=== PATIENT | female | born 1990 | race Caucasian/White ===

== ENCOUNTER 2018-04-11 16:28 | Emergency (ER) | payer BC ==
[2018-04-11 17:55] LABS: Absolute Lymphocytes (CBC) 2.3 K/uL (0.7-4.9); Absolute Monocytes 0.5 K/uL (0.1-1.3); Absolute Neutrophil 2.8 K/uL (1.8-8.0); Basophils % 0.5 % (0-1.3); Hematocrit 44.2 % (36.0-45.0); Lymphocytes % 39.8 % (15.3-44.8); MPV 8.5 fL (7.6-11.3); Monocytes % 9.1 % (3.3-12.3); RBC Red Blood Cell Count 4.57 M/uL (3.86-4.86)
[2018-04-11 18:09] LABS: BUN Blood Urea Nitrogen 10 mg/dL (7-18); Bicarbonate 28 mmol/L (21-32); Glucose Level 99 mg/dL (74-106); Potassium 3.6 mmol/L (3.5-5.1); Sodium Level 140 mmol/L (136-145)
--- NOTE | 2018-04-11 18:29 | RAD REPORT ---
EXAM DESCRIPTION: CTAbdomen Pelvis W Contrast - 04/11/2018 6:19 pm CLINICAL HISTORY: Abdominal pain. iv only;Abd pain;Trauma COMPARISON: No comparisons TECHNIQUE: Biphasic CT imaging of the abdomen and pelvis was performed with 100 ml non-ionic IV cont rast. All CT scans are performed using dose optimization technique as appropriate and may include automated exposure control or mA/KV adjustment according to patient size. FINDINGS: The lung bases are clear. The liver, spleen, pancreas, adrenal glands and kidneys are within normal limits. No bowel obstruction, free air, free fluid or abscess. The appendix is normal. No evidence of signi ficant lymphadenopathy. No suspicious bony findings. IMPRESSION: No acute intra-abdominal or pelvic finding.
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
== END 2018-04-11 19:21 | disposition home or self-care (01) ==
LOC: ER 16:28
DX: G89.11 Acute pain due to trauma (principal); V49.40XA Driver injured in collision with unspecified motor vehicles in traffic accident, initial encounter
CPT/HCPCS: 36415; 74177; 80048; 81025; 85025; 99284; Q9967

== ENCOUNTER 2020-04-30 18:33 | Emergency (ER) | payer BC ==
[2020-04-30 20:09] LABS: Urine Blood NEGATIVE (NEG); Urine Glucose NEGATIVE (NEG); Urine Protein NEGATIVE (NEG); Urine pH 8.5 (5.0-7.0)
[2020-04-30 22:04] LABS: Urine Amorphous Sediment 4+ /HPF (NONE SEEN); Urine Bacteria <20 /HPF (<20); Urine RBC <5 /HPF (NONE SEEN); Urine Urothelial Cells <5 /HPF (NONE SEEN)
[2020-04-30] MEDS ORDERED: KETOROLAC 30 MG/ML INJ ONE (22:31)
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
--- NOTE | 2020-05-01 00:19 | ER ---
Nurse's Notes [facility] Name: Flaca Freeman Age: 29 yrs Sex: Female : 1990 Arrival Date: 04/30/2020 Time: 18:42 Bed 24 Private MD: Diagnosis: Lower abdominal pain, unspecified;Diarrhea, unspecified Presentation: 04/30 18:59 Chief complaint: Patient states: Left lower back pain started noon today. Reports HX of ca1 kidney stone. Coronavirus screen: Client denies travel out of the [place] in the last 14 days. At this time, the client does not indicate any symptoms associated with coronavirus-19. Ebola Screen: Patient negative for fever greater than or equal to 101.5 degrees Fahrenheit, and additional compatible Ebola Virus Disease symptoms Patient denies exposure to infectious person. Patient denies travel to an Ebola-affected area in the 21 days before illness onset. No symptoms or risks identified at this time. Initial Sepsis Screen: Does the patient meet any 2 criteria? No. Patient's initial sepsis screen is negative. Does the patient have a suspected source of infection? No. Patient's initial sepsis screen is negative. Risk Assessment: Do you want to hurt yourself or someone else? Patient reports no desire to harm self or others. Onset of symptoms was April 30, 2020. 18:59 Method Of Arrival: Ambulatory ca1 18:59 Acuity: LYLA 3 ca1 NURSE WOUND CARE: 19:01 LMP 04/28/2020 ca1 Historical: - Allergies: 19:01 No Known Allergies; ca1 - Home Meds: 19:01 None [Active]; ca1 - PMHx: 19:01 Kidney stones; ca1 - PSHx: 19:01 None; ca1 - Immunization history:: Flu vaccine is not up to date. - Social history:: Smoking status: Patient denies any tobacco usage or history of. Screenin:17 Abuse screen: Denies threats or abuse. Nutritional screening: No deficits noted. fu Tuberculosis screening: No symptoms or risk factors identified. Fall Risk None identified. Assessment: 20:30 General: Appears uncomfortable, Behavior is calm, cooperative, appropriate for age, fu Denies fever, feeling ill, fatigue, chills. Pain: Complains of pain in left lower back Pain does not radiate. Pain currently is 6 out of 10 on a pain scale. Quality of pain is described as crampy, Pain began at noon today. Neuro: Level of Consciousness is awake, alert, obeys commands, Oriented to person, place, time, Gaming Associate are equal bilaterally Moves all extremities. Gait is steady, Speech is normal, Facial symmetry appears normal. Cardiovascular: Denies chest pain, nausea, vomiting. Respiratory: Respiratory effort is even, unlabored, Respiratory pattern is regular. : Denies burning with urination. EENT: Denies nasal congestion. 22:30 Reassessment: Report increasing pain to left lower back, GRAIN MANAGER notified. fu 23:00 Reassessment: Patient and/or family updated on plan of care and expected duration. Pain fu level reassessed. Patient is alert, oriented x 3, equal unlabored respirations, skin warm/dry/pink. 23:44 Reassessment: Patient and/or family updated on plan of care and expected duration. Pain fu level reassessed. Patient is alert, oriented x 3, equal unlabored respirations, skin warm/dry/pink. Patient states feeling better. Patient states symptoms have improved. Vital Signs: 18:59 BP 131 / 92; Pulse 93; Resp 16 S; Temp 97.6(TE); Pulse Ox 100% on R/A; Weight 51.71 kg ca1 (R); Height 5 ft. 3 in. (160.02 cm) (R); Pain 8/10; 21:15 BP 119 / 87; Pulse 92; Resp 16; Temp 98.4; Pulse Ox 100% on R/A; Pain 4/10; fu 18:59 Body Mass Index 20.19 (51.71 kg, 160.02 cm) ca1 ED Course: 18:42 Patient arrived in ED. am2 19:00 Triage completed. ca1 19:01 Arm band placed on right wrist. ca1 20:20 Natalia Soriano, GOVERNMENT MINISTER-C is PHCP. snw 20:21 Shreyas Weeks MD is Attending Physician. snw 20:22 Natalia Soriano, GOVERNMENT MINISTER-C is PHCP. snw 20:23 Natalia Soriano, GOVERNMENT MINISTER-C is PHCP. snw 20:35 Kenneth Miranda RN is Primary Nurse. fu 21:23 Bed in low position. Side rails up X 1. Pulse ox on. NIBP on. fu 21:34 No provider procedures requiring assistance completed. fu 23:12 US Rp Exam Complete In Process Unspecified. EDMS 23:12 Ultrasound completed. Patient tolerated well. Notified ED Physician natalia. sg3 05/01 00:10 Patient did not have IV access during this emergency room visit. fu Administered Medications: 04/30 22:23 Drug: TORadol 60 mg Route: IM; Site: right ventrogluteal; fu 23:43 Follow up: Response: Pain is decreased fu Outcome: 05/01 00:18 Discharge ordered by MD. butler 01:10 Discharged to home ambulatory. fu 01:10 Condition: good 01:10 Discharge instructions given to patient, Instructed on discharge instructions, follow up and referral plans. Demonstrated understanding of instructions, follow-up care, Prescriptions given X 2. 01:40 Patient left the ED. fu Signatures: Dispatcher [employer] EDMS Natalia Soriano, ERNAC GOVERNMENT MINISTER-Kanika Munoz am2 Kenneth Miranda, RN RN Audrey Molina sg3 Savana Gamino, RN RN ca1 Corrections: (The following items were deleted from the chart) 04/30 21:22 20:30 EENT: fu fu 22:56 22:11 CORONAVIRUS+MR.LAB.HUGO drawn and sent. EDMS
[2020-05-01 01:45] VITALS: O2SAT 100
[2020-05-01 01:47] VITALS: BP 119/87; TEMP 98.4
--- NOTE | 2020-05-01 09:35 | RAD REPORT ---
EXAM DESCRIPTION: US - Renal Ultrasound-Complete - 04/30/2020 11:12 pm CLINICAL HISTORY: Left flank COMPARISON: None FINDINGS: The right kidney measures 11 cm with a normal echotexture. The left kidney measures 10 cm with a normal echotexture. Hydronephrosis is not seen. No gross abnormality of bladder IMPRESSION: Unremarkable renal ultrasound.
== END 2020-05-01 01:40 | disposition home or self-care (01) ==
LOC: ER 18:33
DX: R19.7 Diarrhea, unspecified (principal); Z20.822 Contact with and (suspected) exposure to COVID-19
CPT/HCPCS: 81025; 76770; 96372; 99284; U0003; 81003; 81015

== ENCOUNTER 2021-03-25 01:06 | Emergency (ER) | payer BC ==
[2021-03-25 02:36] LABS: Absolute Lymphocytes (CBC) 1.2 K/uL (0.7-4.9); Hematocrit 41.6 % (36.0-45.0); Lymphocytes % 10.5 % (15.3-44.8); MPV 8.1 fL (7.6-11.3); RBC Red Blood Cell Count 4.32 M/uL (3.86-4.86)
[2021-03-25] MEDS ORDERED: FAMOTIDINE 20 MG/2 ML VIAL IV ONE (02:36)
[2021-03-25] MEDS ORDERED: ONDANSETRON 4 MG/2 ML VIAL ONE (02:36)
[2021-03-25] MEDS ORDERED: MORPHINE 4 MG/ML SYR ONE (02:36)
[2021-03-25 02:53] LABS: ALT/SGPT 54 U/L (12-78); AST/SGOT 67 U/L (15-37); Albumin 3.7 g/dL (3.4-5.0); Alkaline Phosphatase 72 U/L (45-117); BUN Blood Urea Nitrogen 11 mg/dL (7-18); Bicarbonate 25 mmol/L (21-32); Bilirubin Direct 0.3 mg/dL (0-0.2); Bilirubin Total 0.8 mg/dL (0.2-1.0); Glucose Level 109 mg/dL (74-106); Lipase 95 U/L (73-393); Potassium 3.4 mmol/L (3.5-5.1); Sodium Level 138 mmol/L (136-145)
[2021-03-25] MEDS ORDERED: NA CHLORIDE 0.9% 1,000 ML ONE ×2 (02:59→03:20)
[2021-03-25 03:40] LABS: Urine Blood 2+ (Negative); Urine Glucose Negative (Negative); Urine Protein Negative (Negative)
--- NOTE | 2021-03-25 05:55 | ER ---
Nurse's Notes [facility] Name: Flaca Freeman Age: 30 yrs Sex: Female : 1990 Arrival Date: 03/25/2021 Time: 01:10 Bed 15 Private MD: Diagnosis: Upper abdominal pain, unspecified;Chest pain, unspecified;Back Pain Presentation: 03/25 01:53 Chief complaint: Patient states: About 2 PM I started having back pain, around 5 we ate vc1 and the pain got worse. I took Tums, beano and famotidine thinking it was heart burn but that didn't help so I took 800 mg Ibuprofen and Tylenol. Around 11:30 we ate again and it came back much worse. It started hurting in my chest upper abdomen and started radiating to my shoulders. Coronavirus screen: At this time, the client does not indicate any symptoms associated with coronavirus-19. Ebola Screen: No symptoms or risks identified at this time. Initial Sepsis Screen: Does the patient meet any 2 criteria? No. Patient's initial sepsis screen is negative. Does the patient have a suspected source of infection? No. Patient's initial sepsis screen is negative. Risk Assessment: Do you want to hurt yourself or someone else? Patient reports no desire to harm self or others. Onset of symptoms was March 24, 2021 at 14:00. 01:53 Method Of Arrival: Ambulatory vc1 01:53 Acuity: LYLA 3 vc1 Triage Assessment: 01:58 General: Appears in no apparent distress. comfortable, Behavior is calm, cooperative, vc1 appropriate for age. Pain: Complains of pain in left subscapular area, right subscapular area, mid back area, left mid back, right mid back, diaphragm, xiphoid area and mid-sternal area Pain radiates to posterior aspect of right shoulder and posterior aspect of left shoulder. Pain: Pain currently is 3 out of 10 on a pain scale. at worst was 10 out of 10 on a pain scale. GI: Reports upper abdominal pain, epigastric pain, Pain is 3 out of 10 on a pain scale. 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 - Social history:: Smoking status: Patient denies any tobacco usage or history of. Screenin:00 Abuse screen: Denies threats or abuse. Nutritional screening: No deficits noted. vc1 Tuberculosis screening: No symptoms or risk factors identified. Fall Risk None identified. Assessment: 02:00 General: Appears uncomfortable, Behavior is cooperative. Pain: Complains of pain in mk chest, epigastric region, back Pain currently is 7 out of 10 on a pain scale. Quality of pain is described as sharp, Pain began suddenly, Is continuous. Neuro: Level of Consciousness is awake, alert, obeys commands, Oriented to person, place, time, situation, Robotics Testing Technician are equal bilaterally Moves all extremities. Speech is normal, Facial symmetry appears normal. Cardiovascular: Heart tones S1 S2 present Capillary refill < 3 seconds in bilateral fingers toes Clubbing of nail beds is absent JVD is absent Patient's skin is warm and dry. Rhythm is sinus rhythm. Respiratory: Airway is patent Trachea midline Respiratory effort is even, unlabored, Respiratory pattern is regular, symmetrical, Breath sounds are clear. GI: Bowel sounds present X 4 quads. Abd is soft Abdomen is tender to palpation in epigastric area Reports upper abdominal pain. : No signs and/or symptoms were reported regarding the genitourinary system. Derm: Skin is intact, is healthy with good turgor, Skin is dry, Skin temperature is warm. Musculoskeletal: Circulation, motion, and sensation intact. Capillary refill < 3 seconds, in bilateral fingers. toes. Range of motion: intact in all extremities. 03:00 Reassessment: No changes from previously documented assessment. Patient and/or family mk updated on plan of care and expected duration. Pain level reassessed. Patient is alert, oriented x 3, equal unlabored respirations, skin warm/dry/pink. 04:00 Pain: Complains of pain in abdomen Pain currently is 3 out of 10 on a pain scale. mk Quality of pain is described as sharp, Pain began suddenly, Is continuous. 04:56 Reassessment: No changes from previously documented assessment. Patient and/or family mk updated on plan of care and expected duration. Pain level reassessed. Patient is alert, oriented x 3, equal unlabored respirations, skin warm/dry/pink. Patient states feeling better. 06:12 Reassessment: No changes from previously documented assessment. Patient and/or family mk updated on plan of care and expected duration. Pain level reassessed. Patient is alert, oriented x 3, equal unlabored respirations, skin warm/dry/pink. Vital Signs: 01:53 BP 141 / 99; Pulse 80; Resp 16; Temp 97.7; Pulse Ox 100% ; Weight 54.43 kg; Height 5 vc1 ft. 3 in. (160.02 cm); Pain 3/10; 03:00 BP 127 / 90; Pulse 56; Resp 18; Pulse Ox 98% on R/A; mk 04:00 BP 133 / 93; Pulse 65; Resp 18; Pulse Ox 100% on R/A; mk 04:56 BP 120 / 84; Pulse 64; Resp 18; Pulse Ox 100% on R/A; mk 06:13 BP 132 / 97; Pulse 81; Resp 16; Pulse Ox 99% on R/A; mk 01:53 Body Mass Index 21.26 (54.43 kg, 160.02 cm) vc1 [place] Coma Score: 03:00 Eye Response: spontaneous(4). Verbal Response: oriented(5). Motor Response: obeys commands(6). Total: 15. 04:00 Eye Response: spontaneous(4). Verbal Response: oriented(5). Motor Response: obeys commands(6). Total: 15. 04:56 Eye Response: spontaneous(4). Verbal Response: oriented(5). Motor Response: obeys commands(6). Total: 15. 06:13 Eye Response: spontaneous(4). Verbal Response: oriented(5). Motor Response: obeys commands(6). Total: 15. ED Course: 01:10 Patient arrived in ED. wm 01:42 Mariposa Aceves, SON is Primary Nurse. mk 01:46 Shreyas Weeks MD is Attending Physician. 7 01:57 Triage completed. vc1 01:59 Arm band placed on right wrist. vc1 02:00 Patient has correct armband on for positive identification. Placed in gown. Bed in low vc1 position. Call light in reach. Side rails up X2. Pulse ox on. NIBP on. Warm blanket given. 02:28 Basic Metabolic Panel Sent. mk 02:28 CBC with Diff Sent. mk 02:28 Hepatic Function Sent. mk 02:28 Lipase Sent. mk 02:28 Inserted saline lock: 18 gauge in left antecubital area, using aseptic technique. mk 02:53 Troponin High Sensitivity Sent. mk 03:41 Urine --Ancillary (enter results) Sent. mk 04:27 CT Chest For PE Angio In Process Unspecified. EDMS 04:27 CT Abd/Pelvis - IV Contrast Only In Process Unspecified. EDMS 06:13 IV discontinued, intact, bleeding controlled, No redness/swelling at site. Pressure dressing applied. 06:14 No provider procedures requiring assistance completed. mk Administered Medications: 02:53 Drug: morphine 4 mg Route: IVP; Site: right antecubital; 02:53 Drug: Zofran (Ondansetron) 4 mg Route: IVP; Site: left antecubital; mk 02:53 Drug: Pepcid (famotidine) 20 mg Route: IVP; Site: left antecubital; mk 03:20 Drug: NS 0.9% 1000 ml Route: IV; Rate: 1000 ml; Site: left antecubital; Outcome: 05:55 Discharge ordered by MD. cervantes 06:14 Discharged to home 06:14 Condition: stable 06:14 Discharge instructions given to patient, Instructed on discharge instructions, follow up and referral plans. Prescriptions given X 3. 06:16 Patient left the ED. Signatures: Dispatcher [employer] Shreyas Rangel MD MD Tayla Mendoza Madeline RN Bettie Jaime RN RN vc1 Corrections: (The following items were deleted from the chart) 04:17 04:16 General: Appears in no apparent distress. [facility] 04:17 04:16 Pain: Complains of pain in check, epigastric region, back Pain [facility]
--- NOTE | 2021-03-25 05:55 | EDPHYS ---
Physician Documentation [facility] Name: Flaca Freeman Age: 30 yrs Sex: Female : 1990 Arrival Date: 03/25/2021 Time: 01:10 Bed 15 Private MD: ED Physician Shreyas Weeks HPI: 03/25 02:18 This 30 yrs old Female presents to ER via Ambulatory with complaints of Abdominal Pain, mh7 Chest Pain, Back Pain. 02:18 The patient presents with abdominal pain in the upper abdomen. Onset: The mh7 symptoms/episode began/occurred yesterday, at 14:00. The symptoms radiate to back. Associated signs and symptoms: Pertinent positives: nausea, Pertinent negatives: anorexia, blood in stools, chest pain, constipation, diarrhea, dysuria, fever, headache, hematuria, palpitations, shortness of breath, vaginal discharge, vomiting, vomiting blood. The symptoms are described as intermittent, vague, waxing/waning. Modifying factors: The symptoms are alleviated by nothing, the symptoms are aggravated by food. Severity of pain: At its worst the pain was moderate yesterday, in the emergency department the pain is unchanged. 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 - Social history:: Smoking status: Patient denies any tobacco usage or history of. ROS: 02:18 Constitutional: Negative for fever, chills, and weight loss, Eyes: Negative for injury, mh7 pain, redness, and discharge, ENT: Negative for injury, pain, and discharge, Neck: Negative for injury, pain, and swelling, Cardiovascular: Negative for chest pain, palpitations, and edema, Respiratory: Negative for shortness of breath, cough, wheezing, and pleuritic chest pain, : Negative for injury, bleeding, discharge, and swelling, MS/Extremity: Negative for injury and deformity, Skin: Negative for injury, rash, and discoloration, Neuro: Negative for headache, weakness, numbness, tingling, and seizure, Psych: Negative for depression, anxiety, suicide ideation, homicidal ideation, and hallucinations, Allergy/Immunology: Negative for hives, rash, and allergies, Endocrine: Negative for neck swelling, polydipsia, polyuria, polyphagia, and marked weight changes, Hematologic/Lymphatic: Negative for swollen nodes, abnormal bleeding, and unusual bruising. Exam: 02:18 Head/Face: Normocephalic, atraumatic. Eyes: Pupils equal round and reactive to light, mh7 extra-ocular motions intact. Lids and lashes normal. Conjunctiva and sclera are non-icteric and not injected. Cornea within normal limits. Periorbital areas with no swelling, redness, or edema. Neck: Trachea midline, no thyromegaly or masses palpated, and no cervical lymphadenopathy. Supple, full range of motion without nuchal rigidity, or vertebral point tenderness. No Meningismus. Chest/axilla: Normal chest wall appearance and motion. Nontender with no deformity. No lesions are appreciated. Cardiovascular: Regular rate and rhythm with a normal S1 and S2. No gallops, murmurs, or rubs. Normal PMI, no JVD. No pulse deficits. Respiratory: Lungs have equal breath sounds bilaterally, clear to auscultation and percussion. No rales, rhonchi or wheezes noted. No increased work of breathing, no retractions or nasal flaring. Skin: Warm, dry with normal turgor. Normal color with no rashes, no lesions, and no evidence of cellulitis. MS/ Extremity: Pulses equal, no cyanosis. Neurovascular intact. Full, normal range of motion. Neuro: Awake and alert, GCS 15, oriented to person, place, time, and situation. Cranial nerves II-XII grossly intact. Motor strength 5/5 in all extremities. Sensory grossly intact. Cerebellar exam normal. Normal gait. Psych: Awake, alert, with orientation to person, place and time. Behavior, mood, and affect are within normal limits. 02:18 Constitutional: The patient appears in no acute distress, alert, awake, uncomfortable. 02:18 Abdomen/GI: Inspection: abdomen appears normal, Bowel sounds: normal, in all quadrants, mh7 Palpation: moderate abdominal tenderness, in the epigastric area, right upper quadrant and left upper quadrant, mass, is not appreciated, rebound tenderness, is not appreciated, voluntary guarding, is not appreciated, involuntary guarding, is not appreciated, no appreciated organomegaly, Rectal exam: the exam is deferred, because of patient request, Indicators: McBurney's point is not tender, Garcia's sign is negative, Rovsing's sign is negative, Obturator sign is negative, Psoas sign is negative, Liver: no appreciated palpable abnormalities, Hernia: not appreciated. 02:18 Back: normal spinal alignment noted, CVA tenderness, is absent, muscle spasm, is not present. Vital Signs: 01:53 BP 141 / 99; Pulse 80; Resp 16; Temp 97.7; Pulse Ox 100% ; Weight 54.43 kg; Height 5 vc1 ft. 3 in. (160.02 cm); Pain 3/10; 03:00 BP 127 / 90; Pulse 56; Resp 18; Pulse Ox 98% on R/A; mk 04:00 BP 133 / 93; Pulse 65; Resp 18; Pulse Ox 100% on R/A; mk 04:56 BP 120 / 84; Pulse 64; Resp 18; Pulse Ox 100% on R/A; mk 06:13 BP 132 / 97; Pulse 81; Resp 16; Pulse Ox 99% on R/A; mk 01:53 Body Mass Index 21.26 (54.43 kg, 160.02 cm) vc1 Judith Coma Score: 03:00 Eye Response: spontaneous(4). Verbal Response: oriented(5). Motor Response: obeys mk commands(6). Total: 15. 04:00 Eye Response: spontaneous(4). Verbal Response: oriented(5). Motor Response: obeys mk commands(6). Total: 15. 04:56 Eye Response: spontaneous(4). Verbal Response: oriented(5). Motor Response: obeys mk commands(6). Total: 15. 06:13 Eye Response: spontaneous(4). Verbal Response: oriented(5). Motor Response: obeys mk commands(6). Total: 15. MDM: 05:52 Differential diagnosis: bowel obstruction, cholecystitis, Cholelithiasis, mh7 diverticulitis, Endometriosis, gastritis, gastroesophageal reflux disease, non-specific abd pain, pancreatitis, Peptic Ulcer Disease, Pyelonephritis, Ureterolithiasis, urinary tract infection. Data reviewed: vital signs, nurses notes, lab test result(s), CBC, electrolytes, urinalysis, UPT: negative EKG, radiologic studies, CT scan. Data interpreted: Pulse oximetry: on room air is 100 %. Interpretation: normal. Counseling: I had a detailed discussion with the patient and/or guardian regarding: the historical points, exam findings, and any diagnostic results supporting the discharge/admit diagnosis, lab results, radiology results, the need for outpatient follow up, to return to the emergency department if symptoms worsen or persist or if there are any questions or concerns that arise at home. Response to treatment: the patient's symptoms have resolved after treatment, the patient's blood pressure is in an acceptable range, mental status has returned to baseline, the patient no longer shows bradycardia, the patient is not short of breath, the patient is not tachycardic, the patient's pain is gone, the patient's temperature has normalized. 05:55 Patient medically screened. [facility] 03/25 02:12 Order name: Basic Metabolic Panel; Complete Time: 03:47 [facility] 03/25 02:12 Order name: CBC with Diff; Complete Time: 03:47 [facility] 03/25 02:12 Order name: Hepatic Function; Complete Time: 03:47 [facility] 03/25 02:12 Order name: Lipase; Complete Time: 03:47 [facility] 03/25 02:39 Order name: Troponin High Sensitivity; Complete Time: 03:47 [facility] 03/25 03:39 Order name: Urine Dipstick-Ancillary; Complete Time: 03:47 EDMS 03/25 02:18 Order name: EKG; Complete Time: 02:18 [facility] 03/25 03:40 Order name: Urine --Ancillary (enter results); Complete Time: 04:01 cs9 03/25 03:48 Order name: CT Chest For PE Angio [facility] 03/25 03:48 Order name: CT Abd/Pelvis - IV Contrast Only [facility] 03/25 02:12 Order name: IV Saline Lock; Complete Time: 02:28 [facility] 03/25 02:12 Order name: Labs collected and sent; Complete Time: 02:28 [facility] 03/25 02:12 Order name: Urine Dipstick-Ancillary (obtain specimen); Complete Time: 02:53 [facility] 03/25 02:12 Order name: Urine Test (obtain specimen); Complete Time: 02:53 [facility] 03/25 02:18 Order name: EKG - Nurse/Tech; Complete Time: :53 7 Administered Medications: 02:53 Drug: morphine 4 mg Route: IVP; Site: right antecubital; 02:53 Drug: Zofran (Ondansetron) 4 mg Route: IVP; Site: left antecubital; 02:53 Drug: Pepcid (famotidine) 20 mg Route: IVP; Site: left antecubital; 03:20 Drug: NS 0.9% 1000 ml Route: IV; Rate: 1000 ml; Site: left antecubital; Disposition Summary: 03/25/21 05:55 Discharge Ordered Location: Home [facility] Problem: new [facility] Symptoms: have improved [facility] Condition: Stable [facility] Diagnosis - Upper abdominal pain, unspecified 7 - Chest pain, unspecified [facility] - Back Pain [facility] Followup: [facility] - With: Private Physician - When: 1 - 2 days - Reason: Worsening of condition, Recheck today's complaints, Continuance of care, Re-evaluation by your physician Discharge Instructions: - Discharge Summary Sheet [facility] - Abdominal Pain, Adult, [id number] [facility] - Nonspecific Chest Pain, Adult, [id number] [facility] Forms: - Medication Reconciliation Form [facility] - Thank You Letter 7 - Antibiotic Education [facility] - Prescription Opioid Use [facility] - Work release form cs9 Prescriptions: - ondansetron 4 mg Oral tablet,disintegrating - place 1 tablet by TRANSLINGUAL route every 8 hours As needed; 10 tablet; [facility] Refills: 0, Product Selection Permitted - Pepcid 20 mg Oral Tablet - take 1 tablet by ORAL route every 12 hours for 5 days; 10 tablet; Refills: 0, [facility] Product Selection Permitted - dicyclomine 20 mg Oral Tablet - take 1 tablet by ORAL route 4 times per day As needed; 20 tablet; Refills: 0, [facility] Product Selection Permitted Signatures: Dispatcher [employer] Shreyas Rangel MD MD 7 Mariposa Aceves, RN RN Bettie Alvarez RN RN vc1
[2021-03-25 06:22] VITALS: TEMP 97.7
[2021-03-25 06:27] VITALS: BP 132/97; O2SAT 99
--- NOTE | 2021-03-25 17:38 | RAD REPORT ---
EXAM DESCRIPTION: CT - Chest For Pe Angio - 03/25/2021 7:17 am CLINICAL HISTORY: The patient is 30 years old and is Female; CHEST PAIN TECHNIQUE: Axial computed tomographic angiography images of the chest with intravenous contrast. S agittal and coronal reformatted images were created and reviewed. This CT exam was performed using one or more of the following dose reduction techniques: automated exposure control, adjustment of t he mA and/or kV according to patient size, and/or use of iterative reconstruction technique. MIP re constructed images were created and reviewed. COMPARISON: No relevant prior studies available. FINDINGS: Pulmonary arteries: No PE identified. Aorta: No acute findings. No thoracic aortic aneurysm. Lungs: No pulmonary consolidation or groundglass opacities to suggest pneumonia. Pleural space: No pleural effusion or pneumothorax. Heart: Unremarkable. No cardiomegaly. No significant pericardial effusion. No evidence of R V dysfunction. Bones/joints: No acute fracture. No dislocation. Soft tissues: Unremarkable. Lymph nodes: Unremarkable. No pathologically enlarged lymph nodes. IMPRESSION: No PE identified. Electronically signed by: Laura Fitzgerald MD 03/25/2021 4:58 AM ONLINE ADVERTISING DIRECTOR Due to temporary technical issues with the PACS/Fluency reporting system, reports are being signed by the in house radiologists without review as a courtesy to insure prompt reporting. The interpreting radiologist is fully responsible for the content of the report.
--- NOTE | 2021-03-25 17:44 | RAD REPORT ---
EXAM DESCRIPTION: CT - Abdomen Pelvis W Contrast - 03/25/2021 7:18 am CLINICAL HISTORY: The patient is 30 years old and is Female; ABD PAIN TECHNIQUE: Axial computed tomography images of the abdomen and pelvis with intravenous contrast. S agittal and coronal reformatted images were created and reviewed. This CT exam was performed using one or more of the following dose reduction techniques: automated exposure control, adjustment of t he mA and/or kV according to patient size, and/or use of iterative reconstruction technique. COMPARISON: CT abdomen pelvis April 11, 2018. FINDINGS: Lung bases: Unremarkable. No mass. No consolidation. ABDOMEN: Liver: Unremarkable. No mass. Gallbladder and bile ducts: Contracted gallbladder without calcified stones. No ductal dilation. Pancreas: No findings to suggest acute pancreatitis. No mass visualized. No ductal dilation. Spleen: Unremarkable. No splenomegaly. Adrenals: Unremarkable. No mass. Kidneys and ureters: Punctate right nephrolithiasis. Kidneys are otherwise unremarkable. No hydronephrosis. Stomach and bowel: No bowel dilatation or obstruction. No bowel wall thickening. PELVIS: Appendix: The visualized appendix is normal. No pericecal inflammation to suggest acute appendici tis. Bladder: Unremarkable. No mass. Reproductive: Unremarkable as visualized. ABDOMEN and PELVIS: Intraperitoneal space: Unremarkable. No free air. No significant fluid collection. Bones/joints: No acute fracture visualized. No dislocation. Soft tissues: Unremarkable. Vasculature: Unremarkable. No abdominal aortic aneurysm. Lymph nodes: No pathologically enlarged lymph nodes. IMPRESSION: 1. No acute obstructive or inflammatory process identified. Normal appendix. 2. Punctate right nephrolithiasis. Electronically signed by: Laura Fitzgerald MD 03/25/2021 4:53 AM VOCATIONAL PSYCHOLOGIST Due to temporary technical issues with the PACS/Fluency reporting system, reports are being signed by the in house radiologists without review as a courtesy to insure prompt reporting. The interpreting radiologist is fully responsible for the content of the report.
== END 2021-03-25 06:16 | disposition home or self-care (01) ==
LOC: ER 01:06
DX: R10.10 Upper abdominal pain, unspecified (principal); R07.9 Chest pain, unspecified; M54.9 Dorsalgia, unspecified; Z87.442 Personal history of urinary calculi
CPT/HCPCS: 93005; 85025; 80048; 36415; 81025; 80076; 81003; 84484; 83690; 71275; 74177; 99284; Q9967; J7030 ×2; J2405